=== PATIENT | female | born 1960 | race Caucasian/White ===

== ENCOUNTER 2018-10-10 16:57 | Emergency (ER) | payer OTHER ==
--- NOTE | 2018-10-10 17:50 | RAD ---
RIGHT ANKLE THREE VIEWS: HISTORY: Ankle pain. FINDINGS: No significant soft tissue swelling. No evidence of fracture or acute osseous abnormality. IMPRESSION: No acute findings. POS: [facility]
== END 2018-10-10 17:46 | disposition home or self-care (01) ==
LOC: MADERS 16:57
DX: S93.401A Sprain of unspecified ligament of right ankle, initial encounter (principal); X50.9XXA Other and unspecified overexertion or strenuous movements or postures, initial encounter

== ENCOUNTER 2020-07-31 05:37 | Emergency (ER) | payer OTHER ==
[2020-07-31] MEDS ORDERED: predniSONE 20 MG TAB ONE (06:06)
== END 2020-07-31 06:17 | disposition home or self-care (01) ==
LOC: MADERS 05:37
DX: L25.9 Unspecified contact dermatitis, unspecified cause (principal); F17.210 Nicotine dependence, cigarettes, uncomplicated; Z71.6 Tobacco abuse counseling
CPT/HCPCS: 99282; J7512